=== PATIENT | male | born 1965 | race Caucasian/White ===

== ENCOUNTER → 2018-12-24 | Outpatient (REF) | payer BC ==
[2018-12-24 14:12] LABS: BASO # 0.1 10^3/uL (0.0-0.2); BASO % 1.4 % (0.0-1.0); EOS # 0.2 10^3/uL (0.0-0.50); EOS % 3.7 % (0.0-3.0); HEMATOCRIT 45.4 % (42.0-52.0); HEMOGLOBIN 14.8 g/dl (13.5-17.5); LYMPH # 1.2 10^3/uL (1.5-4.5); LYMPH % 25.7 % (24.0-44.0); MEAN CORPUSCULAR HEMOGLOBIN 26.9 pg (27.0-33.0); MEAN CORPUSCULAR HGB CONC 32.6 g/dl (32.0-36.5); MEAN CORPUSCULAR VOLUME 82.4 fl (80.0-96.0); MONO # 0.6 10^3/uL (0.0-0.8); MONO % 12.8 % (0.0-5.0); NEUTROPHILS # 2.7 10^3/uL (1.8-7.7); NEUTROPHILS % 55.8 % (36.0-66.0); PLATELET COUNT, AUTOMATED 254 10^3/uL (150-450); RED BLOOD COUNT 5.51 10^6/uL (4.30-6.10); WHITE BLOOD COUNT 4.8 10^3/uL (4.0-10.0)
[2018-12-24 14:36] LABS: ALBUMIN 4.1 GM/DL (3.2-5.2); ALT/SGPT 35 U/L (12-78); BILIRUBIN,TOTAL 0.4 MG/DL (0.2-1.0); BLOOD UREA NITROGEN 21 MG/DL (7-18); CALCIUM LEVEL 9.1 MG/DL (8.5-10.1); CARBON DIOXIDE LEVEL 28 MEQ/L (21-32); CHLORIDE LEVEL 102 MEQ/L (98-107); CHOLESTEROL LEVEL 175 MG/DL (<200); CREATININE FOR GFR 0.91 MG/DL (0.70-1.30); GLOMERULAR FILTRATION RATE > 60.0 (>56); GLUCOSE, FASTING 348 MG/DL (70-100); HDL CHOLESTEROL 50 MG/DL (>40); LDL CHOLESTEROL 92 MG/DL (<100); NON-HDL-C 125 MG/DL; POTASSIUM SERUM 4.6 MEQ/L (3.5-5.1); SODIUM LEVEL 137 MEQ/L (136-145); TOTAL PROTEIN 7.7 GM/DL (6.4-8.2); TRIGLYCERIDES LEVEL 166 MG/DL (<150)
[2018-12-24 14:44] LABS: CREATININE, URINE 62.4 MG/DL; MALB URINE SIEMENS 29.9 MG/L; MAU/CREAT RATIO 47.9 MCG/MG (0.0-30.0)
[2018-12-24 15:38] LABS: HEMOGLOBIN A1c 12.1 %
== END ==
LOC: M LABDRWAD 12:50
PROVIDERS: ATTEND Family Medicine
DX: E11.319 Type 2 diabetes mellitus with unspecified diabetic retinopathy without macular edema (principal)

== ENCOUNTER → 2020-04-19 | Outpatient (CLI) | payer BC | LOC: M LABSMTC 10:19 | PROVIDERS: ATTEND Ophthalmology Retina Specialist | DX: Z11.59 Encounter for screening for other viral diseases (principal) | CPT/HCPCS: C9803; U0003 ==

== ENCOUNTER → 2023-09-01 | Outpatient (REF) | payer OTHER | LOC: M LAB REF 15:45 | PROVIDERS: ATTEND Podiatrist | DX: L03.125 Acute lymphangitis of right lower limb (principal) ==

== ENCOUNTER → 2023-10-14 | Outpatient (REF) | payer OTHER | LOC: M LAB REF 16:36 | PROVIDERS: ATTEND Podiatrist | DX: L03.129 Acute lymphangitis of unspecified part of limb (principal) ==

== ENCOUNTER → 2023-11-18 | Outpatient (REF) | payer OTHER | LOC: M LAB REF 17:31 | PROVIDERS: ATTEND Podiatrist | DX: L03.119 Cellulitis of unspecified part of limb (principal) ==

== ENCOUNTER 2024-02-16 10:51 | Inpatient (IN) | payer OTHER ==
[~2024-02-16] VITALS: Ht 185.4 cm; Wt 88.4 kg
[2024-02-16 12:00] VITALS: BP 146/83; TEMP 97.7; O2SAT 94
[2024-02-16] MEDS ORDERED: VANCOMYCIN HCL 1,000 MG, VIAL MATE ADAPTER 1 EACH in D5W 250 ML IV SCH (12:20)
[2024-02-16] MEDS ORDERED: ACETAMINOPHEN TAB 650MG DOSE (2X325MG) PO PRN (12:20)
[2024-02-16] MEDS ORDERED: GLUCOSE 4 GM CHEW PO PRN (12:25)
[2024-02-16] MEDS ORDERED: DEXTROSE 50% 50ML SYRINGE IV PRN (12:25)
[2024-02-16] MEDS ORDERED: GLUCAGON INJ 1MG VIAL SC PRN (12:25)
[2024-02-16] MEDS: NS 1,000 ML IV SCH (13:00)
[2024-02-16 13:06] LABS: BASO # 0.1 10^3/uL (0.0-0.2); BASO % 1.1 % (0.0-1.0); EOS # 0.2 10^3/uL (0.0-0.5); EOS % 2.7 % (0.0-3.0); HEMATOCRIT 42.2 % (42.0-52.0); HEMOGLOBIN 14.1 g/dl (13.5-17.5); LYMPH # 0.9 10^3/uL (1.5-5.0); LYMPH % 11.9 % (24.0-44.0); MEAN CORPUSCULAR HEMOGLOBIN 27.6 pg (27.0-33.0); MEAN CORPUSCULAR HGB CONC 33.4 g/dl (32.0-36.5); MEAN CORPUSCULAR VOLUME 82.7 fl (80.0-96.0); MONO # 0.6 10^3/uL (0.0-0.8); MONO % 8.4 % (2.0-8.0); NEUTROPHILS # 5.3 10^3/uL (1.5-8.5); NEUTROPHILS % 74.8 % (36.0-66.0); PLATELET COUNT, AUTOMATED 365 10^3/uL (150-450); WHITE BLOOD COUNT 7.1 10^3/uL (4.0-10.0)
[2024-02-16] MEDS: INSULIN LISPRO (NovoLOG) PER UNIT SC SCH (13:10)
[2024-02-16 13:16] LABS: HEMOGLOBIN A1c 9.1 % (4.0-6.0)
[2024-02-16 13:26] LABS: INR 0.98; PROTHROMBIN TIME 12.7 SECONDS (12.5-14.5)
[2024-02-16] MEDS ORDERED: GLIP10TA18 PO (13:27)
[2024-02-16] MEDS ORDERED: CEFD1CAP9 PO (13:27)
[2024-02-16] MEDS ORDERED: THERTAB52 PO (13:27)
[2024-02-16] MEDS ORDERED: JARD1TAB PO (13:27)
[2024-02-16] MEDS ORDERED: ATOR1TAB21 PO (13:27)
[2024-02-16] MEDS ORDERED: DULA3PEN SQ (13:27)
[2024-02-16] MEDS ORDERED: METF-877 PO (13:27)
[2024-02-16] MEDS ORDERED: HOME MED LIST COMPLETE! XX SCH (13:30)
[2024-02-16 13:38] LABS: ALBUMIN 3.1 G/DL (3.2-5.2); ALKALINE PHOSPHATASE 99 U/L (46-116); ALT/SGPT 31 U/L (7.0-40); AST/SGOT 24 U/L (<34); BILIRUBIN,TOTAL 0.3 MG/DL (0.3-1.2); BLOOD UREA NITROGEN 15 MG/DL (9-23); CALCIUM LEVEL 9.2 MG/DL (8.5-10.1); CARBON DIOXIDE LEVEL 29 MMOL/L (20-31); CHLORIDE LEVEL 99 MMOL/L (98-107); CREATININE FOR GFR 0.83 MG/DL (0.70-1.30); GLOMERULAR FILTRATION RATE > 60.0 (>56); GLUCOSE, FASTING 256 MG/DL (60-100); POTASSIUM SERUM 4.5 MMOL/L (3.5-5.1); SODIUM LEVEL 135 MMOL/L (136-145); TOTAL PROTEIN 7.8 G/DL (5.7-8.2)
[2024-02-16 13:49] LABS: PROCALCITONIN 0.07 ng/ml
[2024-02-16] MEDS ORDERED: ONDANSETRON 4MG 2ML VIAL IV PRN (14:35)
[2024-02-16] MEDS ORDERED: HYDROMORPHONE HCL 0.5 MG/ 0.5 ML SYRINGE IV PRN (14:35)
[2024-02-16] MEDS: cefTRIAXone SOD 2 GM in D5W MINI-BAG PLUS 50 ML IV SCH (15:19)
[2024-02-16] MEDS: GENTAMICIN SULF 80MG/2ML VIAL As Ordered ONE (16:03)
[2024-02-16] MEDS: LIDOCAINE 2% MDV 20ML VIAL As Ordered ONE (16:04)
[2024-02-16] MEDS: VANCOMYCIN HCL 1,000 MG, VIAL MATE ADAPTER 1 EACH in D5W 250 ML IV ONE ×2 (16:20→18:32)
[2024-02-16] MEDS ORDERED: LIDOCAINE 2% 100MG/5ML SDV (FOR ANES.) As Ordered ONE (16:34)
[2024-02-16] MEDS ORDERED: propofoL 200 MG/20 ML VIAL As Ordered ONE (16:34)
[2024-02-16] MEDS ORDERED: fentaNYL 100 MCG/2 ML INJECTION As Ordered ONE (16:34)
[2024-02-16] MEDS ORDERED: traMADol 50 MG TAB PO PRN (16:35)
[2024-02-16] MEDS ORDERED: MIDAZOLAM INJ 2MG/2ML VIAL As Ordered ONE (16:35)
[2024-02-16] MEDS ORDERED: KETOROLAC 60MG 2ML VIAL As Ordered ONE (17:18)
[2024-02-16] MEDS: VANCOMYCIN HCL 750 MG, VIAL MATE ADAPTER 1 EACH in D5W 250 ML IV ONE ×2 (17:30→20:02)
[2024-02-16 18:00] VITALS: BP 139/78; TEMP 97.5; O2SAT 100
[2024-02-16 19:00] VITALS: BP 144/73; TEMP 98.2; O2SAT 99
[2024-02-16] MEDS: GABAPENTIN 300 MG CAP PO SCH (20:02)
[2024-02-16] MEDS: DOCUSATE SODIUM 100MG CAPSULE PO SCH (20:02)
[2024-02-16] MEDS: ATORVASTATIN 20 MG TAB PO SCH (20:02)
[2024-02-16 20:05] VITALS: BP 135/78; TEMP 97.7; O2SAT 100
[2024-02-16 21:28] VITALS: BP 118/67; TEMP 97.7; O2SAT 97
[2024-02-16 22:23] VITALS: BP 128/67; TEMP 97.9; O2SAT 96
[2024-02-17 00:25] VITALS: BP 131/68; TEMP 97.7; O2SAT 97
[2024-02-17] MEDS: VANCOMYCIN HCL 750 MG, VIAL MATE ADAPTER 1 EACH in D5W 250 ML IV SCH ×2 (03:46→04:43)
[2024-02-17 05:16] VITALS: BP 135/78; TEMP 98.1; O2SAT 98
[2024-02-17 06:51] LABS: BASO # 0.1 10^3/uL (0.0-0.2); BASO % 1.1 % (0.0-1.0); EOS # 0.4 10^3/uL (0.0-0.5); HEMATOCRIT 36.3 % (42.0-52.0); LYMPH % 16.3 % (24.0-44.0); MEAN CORPUSCULAR HEMOGLOBIN 27.5 pg (27.0-33.0); MEAN CORPUSCULAR HGB CONC 32.8 g/dl (32.0-36.5); MONO # 0.7 10^3/uL (0.0-0.8); MONO % 10.6 % (2.0-8.0); NEUTROPHILS # 3.9 10^3/uL (1.5-8.5); NEUTROPHILS % 64.5 % (36.0-66.0); PLATELET COUNT, AUTOMATED 317 10^3/uL (150-450); RED BLOOD COUNT 4.32 10^6/uL (4.30-6.10); WHITE BLOOD COUNT 6.1 10^3/uL (4.0-10.0)
[2024-02-17 07:03] LABS: HEMOGLOBIN 11.9 g/dl (13.5-17.5)
[2024-02-17 07:05] LABS: BLOOD UREA NITROGEN 17 MG/DL (9-23); CALCIUM LEVEL 7.9 MG/DL (8.5-10.1); CARBON DIOXIDE LEVEL 27 MMOL/L (20-31); CHLORIDE LEVEL 96 MMOL/L (98-107); CREATININE FOR GFR 0.71 MG/DL (0.70-1.30); GLOMERULAR FILTRATION RATE > 60.0 (>56); GLUCOSE, FASTING 467 MG/DL (60-100); SODIUM LEVEL 129 MMOL/L (136-145)
[2024-02-17] MEDS: ENOXAPARIN 40MG/0.4ML SYRINGE (J1650 PER 10MG) SC SCH (08:53)
[2024-02-17] MEDS: glipiZIDE XL 5 MG TABCR PO SCH (09:02)
[2024-02-17] MEDS: LEVEMIR (INSULIN DETEMIR) 1 UNITS/0.01ML SC SCH (09:03)
[2024-02-17] MEDS: INSULIN LISPRO (NovoLOG) PER UNIT SC SCH ×2 (09:03→21:00)
[2024-02-17 10:02] VITALS: BP 133/74; TEMP 97.9; O2SAT 98
[2024-02-17 14:00] VITALS: BP 123/71; TEMP 98.1; O2SAT 98
[2024-02-17 14:34] LABS: VANCOMYCIN LEVEL TROUGH 14.3 UG/ML (10.0-20.0)
[2024-02-17 18:00] VITALS: BP 128/69; TEMP 97.7; O2SAT 97
[2024-02-17 18:47] LABS: C REACTIVE PROTEIN QUANTITATIV 2.6 MG/DL (<1.0)
[2024-02-17 22:00] VITALS: BP 130/72; TEMP 97.9; O2SAT 98
[2024-02-18 01:59] VITALS: BP 135/78; TEMP 98.1; O2SAT 98
[2024-02-18 06:00] VITALS: BP 144/78; TEMP 98.1; O2SAT 98
[2024-02-18 07:01] LABS: BASO # 0.1 10^3/uL (0.0-0.2); BASO % 0.7 % (0.0-1.0); EOS # 0.4 10^3/uL (0.0-0.5); EOS % 6.5 % (0.0-3.0); HEMATOCRIT 36.5 % (42.0-52.0); HEMOGLOBIN 12.4 g/dl (13.5-17.5); LYMPH # 1.2 10^3/uL (1.5-5.0); LYMPH % 17.3 % (24.0-44.0); MEAN CORPUSCULAR HEMOGLOBIN 27.9 pg (27.0-33.0); MONO # 0.8 10^3/uL (0.0-0.8); MONO % 11.1 % (2.0-8.0); NEUTROPHILS # 4.3 10^3/uL (1.5-8.5); NEUTROPHILS % 63.1 % (36.0-66.0); PLATELET COUNT, AUTOMATED 343 10^3/uL (150-450); RED BLOOD COUNT 4.45 10^6/uL (4.30-6.10); WHITE BLOOD COUNT 6.8 10^3/uL (4.0-10.0)
[2024-02-18 07:28] LABS: BLOOD UREA NITROGEN 13 MG/DL (9-23); CALCIUM LEVEL 8.5 MG/DL (8.5-10.1); CARBON DIOXIDE LEVEL 27 MMOL/L (20-31); CHLORIDE LEVEL 103 MMOL/L (98-107); CREATININE FOR GFR 0.76 MG/DL (0.70-1.30); GLOMERULAR FILTRATION RATE > 60.0 (>56); GLUCOSE, FASTING 187 MG/DL (60-100); POTASSIUM SERUM 4.1 MMOL/L (3.5-5.1); SODIUM LEVEL 136 MMOL/L (136-145)
[2024-02-18] MEDS: LEVEMIR (INSULIN DETEMIR) 1 UNITS/0.01ML SC SCH (10:07)
[2024-02-18 14:00] VITALS: BP 138/73; TEMP 97.9; O2SAT 97
[2024-02-18 20:45] VITALS: BP 136/74; TEMP 97.9; O2SAT 98
[2024-02-19 05:44] VITALS: BP 134/76; TEMP 97.9; O2SAT 99
[2024-02-19 06:44] LABS: BASO # 0.1 10^3/uL (0.0-0.2); EOS # 0.4 10^3/uL (0.0-0.5); EOS % 5.7 % (0.0-3.0); HEMATOCRIT 39.8 % (42.0-52.0); HEMOGLOBIN 12.9 g/dl (13.5-17.5); LYMPH # 1.4 10^3/uL (1.5-5.0); LYMPH % 20.5 % (24.0-44.0); MEAN CORPUSCULAR HEMOGLOBIN 26.9 pg (27.0-33.0); MEAN CORPUSCULAR HGB CONC 32.4 g/dl (32.0-36.5); MEAN CORPUSCULAR VOLUME 83.1 fl (80.0-96.0); MONO # 0.8 10^3/uL (0.0-0.8); MONO % 10.7 % (2.0-8.0); NEUTROPHILS # 4.3 10^3/uL (1.5-8.5); NEUTROPHILS % 60.8 % (36.0-66.0); PLATELET COUNT, AUTOMATED 342 10^3/uL (150-450); RED BLOOD COUNT 4.79 10^6/uL (4.30-6.10)
[2024-02-19 07:07] LABS: BLOOD UREA NITROGEN 14 MG/DL (9-23); CALCIUM LEVEL 8.5 MG/DL (8.5-10.1); CARBON DIOXIDE LEVEL 29 MMOL/L (20-31); CHLORIDE LEVEL 103 MMOL/L (98-107); CREATININE FOR GFR 0.75 MG/DL (0.70-1.30); GLOMERULAR FILTRATION RATE > 60.0 (>56); GLUCOSE, FASTING 183 MG/DL (60-100); POTASSIUM SERUM 4.3 MMOL/L (3.5-5.1); SODIUM LEVEL 136 MMOL/L (136-145)
[2024-02-19] MEDS ORDERED: AMOX875T2 PO (10:48)
[2024-02-19] MEDS ORDERED: PROBCAP14 PO (10:48)
[2024-02-19] MEDS ORDERED: GABA-282 PO (10:48)
== END 2024-02-19 13:14 | disposition home or self-care (01) | DRG 623 ==
LOC: PREOBSVTOIN 11:42 → M MSPAV 11:44
PROVIDERS: ADMIT Internal Medicine; ATTEND Internal Medicine Nephrology
PROC: 0JBQ0ZZ Excision of Right Foot Subcutaneous Tissue and Fascia, Open Approach (ICD-10-PCS; principal; 2024-02-16 16:30)
DX: E11.621 Type 2 diabetes mellitus with foot ulcer (principal); L02.611 Cutaneous abscess of right foot; E11.319 Type 2 diabetes mellitus with unspecified diabetic retinopathy without macular edema; E11.42 Type 2 diabetes mellitus with diabetic polyneuropathy; L97.519 Non-pressure chronic ulcer of other part of right foot with unspecified severity; E78.5 Hyperlipidemia, unspecified; Z87.891 Personal history of nicotine dependence; Z79.51 Long term (current) use of inhaled steroids; Z79.84 Long term (current) use of oral hypoglycemic drugs; Z79.899 Other long term (current) drug therapy; Z88.0 Allergy status to penicillin; B96.20 Unspecified Escherichia coli [E. coli] as the cause of diseases classified elsewhere

== ENCOUNTER → 2024-04-21 | Outpatient (REF) | payer OTHER ==
[~2024-04-21] MED LIST: AMOX875T2 PO; ATOR1TAB21 PO; CEFD1CAP9 PO; DULA3PEN SQ; GABA-282 PO; GLIP10TA18 PO; JARD1TAB PO; METF-877 PO; PROBCAP14 PO; THERTAB52 PO
== END ==
LOC: M LAB REF 19:33
PROVIDERS: ATTEND Podiatrist
DX: L03.125 Acute lymphangitis of right lower limb (principal)

== ENCOUNTER → 2024-05-31 | Outpatient (REF) | payer OTHER | LOC: M LAB REF 16:11 | PROVIDERS: ATTEND Podiatrist | DX: L03.115 Cellulitis of right lower limb (principal) ==

== ENCOUNTER → 2024-05-31 | Outpatient (CLI) | payer OTHER ==
[2024-05-31 17:11] LABS: BASO % 0.5 % (0.0-1.0); EOS # 0.1 10^3/uL (0.0-0.5); EOS % 1.5 % (0.0-3.0); HEMATOCRIT 42.6 % (42.0-52.0); HEMOGLOBIN 13.6 g/dl (13.5-17.5); LYMPH # 0.9 10^3/uL (1.5-5.0); LYMPH % 11.2 % (24.0-44.0); MEAN CORPUSCULAR HEMOGLOBIN 25.5 pg (27.0-33.0); MEAN CORPUSCULAR HGB CONC 31.9 g/dl (32.0-36.5); MEAN CORPUSCULAR VOLUME 79.8 fl (80.0-96.0); MONO # 0.9 10^3/uL (0.0-0.8); MONO % 10.5 % (2.0-8.0); NEUTROPHILS # 6.2 10^3/uL (1.5-8.5); NEUTROPHILS % 75.8 % (36.0-66.0); PLATELET COUNT, AUTOMATED 303 10^3/uL (150-450); RED BLOOD COUNT 5.34 10^6/uL (4.30-6.10); WHITE BLOOD COUNT 8.1 10^3/uL (4.0-10.0)
[2024-05-31 17:46] LABS: ALBUMIN 3.9 G/DL (3.2-5.2); ALKALINE PHOSPHATASE 85 U/L (46-116); ALT/SGPT 29 U/L (7.0-40); AST/SGOT 10 U/L (<34); BILIRUBIN,TOTAL 0.5 MG/DL (0.3-1.2); BLOOD UREA NITROGEN 19 MG/DL (9-23); CALCIUM LEVEL 9.6 MG/DL (8.5-10.1); CARBON DIOXIDE LEVEL 29 MMOL/L (20-31); CHLORIDE LEVEL 103 MMOL/L (98-107); CREATININE FOR GFR 0.92 MG/DL (0.70-1.30); GLOMERULAR FILTRATION RATE > 60.0 (>56); GLUCOSE, FASTING 151 MG/DL (60-100); POTASSIUM SERUM 4.3 MMOL/L (3.5-5.1); SODIUM LEVEL 137 MMOL/L (136-145)
== END ==
LOC: M LAB 16:42
PROVIDERS: ATTEND Podiatrist
DX: M86.9 Osteomyelitis, unspecified (principal)

== ENCOUNTER 2024-06-01 14:16 | Day surgery (SDC) | payer OTHER ==
[~2024-06-01] VITALS: Ht 185.4 cm; Wt 93.3 kg
[2024-06-01] MEDS ORDERED: LR 1,000 ML IV SCH (14:45)
[2024-06-01] MEDS ORDERED: MIDAZOLAM INJ 2MG/2ML VIAL As Ordered ONE (15:40)
[2024-06-01] MEDS ORDERED: fentaNYL 100 MCG/2 ML INJECTION As Ordered ONE (15:40)
[2024-06-01] MEDS ORDERED: LIDOCAINE 2% 100MG/5ML SDV (FOR ANES.) As Ordered ONE (15:41)
[2024-06-01] MEDS ORDERED: propofoL 200 MG/20 ML VIAL As Ordered ONE (15:41)
[2024-06-01] MEDS ORDERED: VANCOMYCIN HCL 1,250 MG, VIAL MATE ADAPTER 1 EACH in NS 250 ML IV ONE (16:55)
[2024-06-01] MEDS: VANCOMYCIN HCL 750 MG, VIAL MATE ADAPTER 1 EACH in D5W 250 ML IV ONE (17:28)
[2024-06-01] MEDS: VANCOMYCIN HCL 500 MG in D5W MINI-BAG PLUS 100 ML IV ONE (17:28)
[2024-06-01] MEDS: LIDOCAINE 2% MDV 20ML VIAL As Ordered ONE (17:37)
[2024-06-01] MEDS: VANCOMYCIN 500MG/10ML VIAL As Ordered ONE (18:00)
[2024-06-01] MEDS: ROPIvacaine 0.5% 30ML VIAL As Ordered ONE (18:06)
[2024-06-01 19:15] VITALS: BP 172/87; TEMP 97.5; O2SAT 98
== END 2024-06-01 19:27 | disposition home or self-care (01) ==
LOC: M SDC 14:16
PROVIDERS: ATTEND Podiatrist
DX: M86.171 Other acute osteomyelitis, right ankle and foot (principal); E11.621 Type 2 diabetes mellitus with foot ulcer; Z79.84 Long term (current) use of oral hypoglycemic drugs; Z79.891 Long term (current) use of opiate analgesic; Z79.899 Other long term (current) drug therapy
CPT/HCPCS: 28113; 73630; 87070; 87075; 87077; 87116; 87186; 87206; C1713; J0665; J2250; J3010; J3370

== ENCOUNTER 2024-12-22 06:35 | Day surgery (SDC) | payer OTHER ==
[~2024-12-22] VITALS: Ht 185.4 cm; Wt 98.2 kg
[2024-12-22] MEDS: OFLOXACIN 0.3 % (OCUFLOX) OPTH SOL 5ML OS ONE (06:00)
[2024-12-22] MEDS: LIDOCAINE 3.5 % 1ML OPHTH TOPICAL GEL OU ONE (06:00)
[~2024-12-22 06:35] MED LIST changes: +GABA-1172 PO; -GABA-282 PO; +GLIP-320 PO; -GLIP10TA18 PO; +MIDAZOLAM INJ 2MG/2ML VIAL As Ordered ONE; +PHENYLEPHRINE 10% OPHTH SOL 5ML OS PRN; +TIRZ5PEN SC; +fentaNYL 100 MCG/2 ML INJECTION As Ordered ONE
[2024-12-22] MEDS: CYCLOPENTOLATE 1% OPHTH SOLN 2ML BTL OS SCH (07:12)
[2024-12-22] MEDS: TROPICAMIDE 1% OPHTH SOLN 15ML OS SCH (07:13)
[2024-12-22] MEDS: PHENYLEPHRINE 2.5% OPHTH SOL 2ML OS SCH (07:13)
[2024-12-22] MEDS ORDERED: DEXTROSE 50% 50ML SYRINGE IV PRN (07:50)
[2024-12-22] MEDS ORDERED: GLUCAGON INJ 1MG VIAL SC PRN (07:50)
[2024-12-22] MEDS ORDERED: GLUCOSE 4 GM CHEW PO PRN (07:50)
[2024-12-22] MEDS: INSULIN LISPRO (NovoLOG) PER UNIT SC PRN (08:04)
[2024-12-22] MEDS: BSS IRRIG/VANCO(10MG)/TOBRA(5MG)/EPINEPH(1:1000-0.5CC)500ML BAG-ORONLY As Ordered ONE (08:39)
[2024-12-22] MEDS: LIDOCAINE 1% SDV 5ML VIAL As Ordered ONE (08:39)
[2024-12-22 08:56] VITALS: BP 118/69; TEMP 98.1; O2SAT 95
[2024-12-26] MEDS ORDERED: TIRZ7.5P SQ (07:50)
[2024-12-26] MEDS ORDERED: JARD1TAB3 PO (07:50)
[2024-12-26] MEDS ORDERED: GLIP10TA15 PO (07:50)
[2024-12-26] MEDS ORDERED: NEUR300C PO (11:46)
== END 2024-12-22 09:15 | disposition home or self-care (01) ==
LOC: M SDC 06:35
PROVIDERS: ATTEND Ophthalmology
DX: E11.36 Type 2 diabetes mellitus with diabetic cataract (principal); H25.12 Age-related nuclear cataract, left eye; E11.3593 Type 2 diabetes mellitus with proliferative diabetic retinopathy without macular edema, bilateral; Z79.84 Long term (current) use of oral hypoglycemic drugs; Z79.85 Long-term (current) use of injectable non-insulin antidiabetic drugs; Z79.899 Other long term (current) drug therapy; Z88.0 Allergy status to penicillin
CPT/HCPCS: 66984; J1815; J2250; J3010; V2632

== ENCOUNTER 2025-01-05 07:31 | Day surgery (SDC) | payer OTHER ==
[~2025-01-05] VITALS: Ht 185.4 cm; Wt 96.3 kg
[2025-01-05] MEDS: CEFUROXIME 1MG/0.1ML INTRACAMERAL INJ As Ordered ONE (06:50)
[~2025-01-05 07:31] MED LIST changes: +GLIP10TA15 PO; +JARD1TAB3 PO; +NEUR300C PO; +PHENYLEPHRINE 10% OPHTH SOL 5ML OD PRN; -PHENYLEPHRINE 10% OPHTH SOL 5ML OS PRN; +TIRZ7.5P SQ
[2025-01-05] MEDS: TROPICAMIDE 1% OPHTH SOLN 15ML OD SCH (07:50)
[2025-01-05] MEDS: PHENYLEPHRINE 2.5% OPHTH SOL 2ML OD SCH (07:50)
[2025-01-05] MEDS: OFLOXACIN 0.3 % (OCUFLOX) OPTH SOL 5ML OD ONE (07:50)
[2025-01-05] MEDS: LIDOCAINE 3.5 % 1ML OPHTH TOPICAL GEL OU ONE (07:50)
[2025-01-05] MEDS: CYCLOPENTOLATE 1% OPHTH SOLN 2ML BTL OD SCH (07:50)
[2025-01-05] MEDS ORDERED: DEXTROSE 50% 50ML SYRINGE IV PRN (08:00)
[2025-01-05] MEDS ORDERED: GLUCAGON INJ 1MG VIAL SC PRN (08:00)
[2025-01-05] MEDS ORDERED: GLUCOSE 4 GM CHEW PO PRN (08:00)
[2025-01-05] MEDS: INSULIN LISPRO (NovoLOG) PER UNIT SC PRN (08:09)
[2025-01-05] MEDS: LIDOCAINE 1% SDV 5ML VIAL As Ordered ONE (09:03)
[2025-01-05] MEDS: BSS IRRIG/VANCO(10MG)/TOBRA(5MG)/EPINEPH(1:1000-0.5CC)500ML BAG-ORONLY As Ordered ONE (09:03)
[2025-01-05 09:17] VITALS: BP 121/66; TEMP 97.6; O2SAT 99
== END 2025-01-05 09:36 | disposition home or self-care (01) ==
LOC: M SDC 07:31
PROVIDERS: ATTEND Ophthalmology
DX: H25.11 Age-related nuclear cataract, right eye (principal); E11.9 Type 2 diabetes mellitus without complications; Z79.84 Long term (current) use of oral hypoglycemic drugs; Z79.899 Other long term (current) drug therapy; Z88.0 Allergy status to penicillin
CPT/HCPCS: 66984; J1815; J2250; J3010; V2632

== ENCOUNTER → 2025-04-26 | Outpatient (CLI) | payer OTHER ==
[~2025-04-26] MED LIST changes: -MIDAZOLAM INJ 2MG/2ML VIAL As Ordered ONE; -PHENYLEPHRINE 10% OPHTH SOL 5ML OD PRN; -fentaNYL 100 MCG/2 ML INJECTION As Ordered ONE
[2025-04-26 12:29] LABS: PLATELET COUNT, AUTOMATED 166 10^3/uL (150-450)
[2025-04-26 12:34] LABS: CREATININE, URINE 50.0 MG/DL
[2025-04-26 12:35] LABS: ALT/SGPT 60 U/L (7.0-40); AST/SGOT 30 U/L (<34); CALCIUM LEVEL 9.6 MG/DL (8.5-10.1); CARBON DIOXIDE LEVEL 28 MMOL/L (20-31); CHLORIDE LEVEL 103 MMOL/L (98-107); CHOLESTEROL LEVEL 171 MG/DL (<200); CHOLESTEROL RISK RATIO 2.76 (<5); CREATININE FOR GFR 0.87 MG/DL (0.70-1.30); GLOMERULAR FILTRATION RATE > 90.0 (>56); LDL CHOLESTEROL 86.0 MG/DL (<100); NON-HDL-C 109.2 MG/DL; POTASSIUM SERUM 4.3 MMOL/L (3.5-5.1); SODIUM LEVEL 142 MMOL/L (136-145); TRIGLYCERIDES LEVEL 116 MG/DL (<150)
[2025-04-26 12:36] LABS: MALB URINE SIEMENS 9.0 MG/L; MAU/CREAT RATIO 18.0 MCG/MG (0.0-30.0)
[2025-04-26 12:37] LABS: FREE T4 1.39 NG/DL (0.89-1.76)
== END ==
LOC: M WUC 09:19
PROVIDERS: ATTEND Nurse Practitioner Family
DX: E11.65 Type 2 diabetes mellitus with hyperglycemia (principal)